=== PATIENT | female | born 1960 | race Two or more races ===

== ENCOUNTER 2024-04-25 17:33 | Emergency (ER) | payer MEDICARE, OTHER ==
[~2024-04-25] VITALS: Ht 172.7 cm; Wt 79.2 kg
--- NOTE | 2024-04-25 20:27 | ED.PDOC ---
Eye-HPI HPI Comments 63 y.o female with PMHx of gurdeep, presents with left lower tooth pain that began approximately one year ago following a root canal and crown placement. Since the procedure, the patient has had persistent discomfort and has seen her dentist multiple times for evaluation. Most recently, the patient was seen by their dentist two days ago, where X rays were taken, and she was prescribed Clindamycin which she has started taking. Despite this, the patient continues to experience redness of the gums, swelling and ongoing pain. The patient denies any fever, chills, drainage, or any other pertinent negatives. Patient did have a deep teeth cleaning about 2 weeks ago. Chief Complaint: Tooth Pain Time Seen by MD: 20:02 Primary Care Provider: brandee Robles Notes: Nurses Notes, Medications, Allergies Allergies: Coded Allergies: Tetracycline (Verified Allergy, Unknown, 04/25/24) Home Meds Active Scripts Fluconazole (Diflucan) 150 Mg Tab, 1 TAB PO EOD for 3 Days, #3 TAB Prov:GUS HAINES MD 04/25/24 Information Source: Patient Mode of Arrival: Ambulatory Timing: Came on: Gradually Duration: Since onset Quality: Pain Mouth: Left, Lower, Tender, Swelling, Red Associated signs and symptoms: Tooth Pain Past Medical History PAST MEDICAL HISTORY: Thyroid (gurdeep ) Past Medical History (Other): sclerosis and bulging disks CHIP MIXER History: No Pertinent CHIP MIXER History Family History Family History: Reviewed,noncontributory to illness Social History Smoker: Non-Smoker Alcohol: Denies ETOH Use Drugs: Denies Drug Use Lives In: Home Constitutional: denies: chills, diaphoresis, fatigue, fever, malaise, sweats, weakness, others EENTM: reports: others (left bottom tooth pain ); denies: blurred vision, double vision, ear bleeding, ear discharge, ear drainage, ear pain, ear ringing, eye pain, eye redness, hearing loss, mouth pain, mouth swelling, nasal discharge, nose bleeding, nose congestion, nose pain, photophobia, tearing, thr oat pain, throat swelling, voice changes Respiratory: denies: cough, hemoptysis, orthopnea, SOB at rest, shortness of breath, SOB with excertion, stridor, wheezing, others Cardiovascular: denies: chest pain, dizzy spells, diaphoresis, Dyspnea on exertion, edema, irregular heart beat, left arm pain, lightheadedness, palpitations, PND, syncope, others Gastrointestinal: denies: abdomen distended, abdominal pain, blood streaked bowels, constipated, diarrhea, dysphagia, difficulty swallowing, hematemesis, melena, nausea, poor appetite, poor fluid intake, rectal bleeding, rectal pain, vomiting, others Genitourinary: denies: abnormal vagina bleeding, burning, dyspareunia, dysuria, flank pain, frequency, hematuria, incontinence, pain, , vagina discharge, urgency, others Neurological: denies: dizziness, fainting, headache, left sided numbness, left sided weakness, numbness, paresthesia, pre-existing deficit, right sided numbness, right sided weakness, seizure, speech problems, tingling, tremors, weakness, others Musculoskeletal: denies: back pain, gout, joint pain, joint swelling, muscle pain, muscle stiffness, neck pain, others Integumetry: denies: bruises, change in color, change in hair/nails, dryness, laceration, lesions, lumps, rash, wounds, others Allergic/Immunocompromised: denies: Difficulty Healing, Frequent Infections, Hives, Itching, others Endocrine: denies: excessive hunger, excessive sweating, excessive thirst, excessive urination, flushing, intolerance to cold, intolerance to heat, unexplained weight gain, unexplained weight loss, others Psychiatric: denies: anxiety, bipolar disorder, depression, hopeless, panic disorder, schizophrenia, sleepless, suicidal, others All Other Systems: Reviewed and Negative Physical Exam General Appearance: No Apparent Distress, Normal HEENT: Normal ENT Inspection, Pharynx Normal, TMs Normal, Other (Gingival erythema with a small abrasion to the left lower gum area, no periapical abscess, no loose teeth, no obvious significant dental caries) Neck: Full Range of Motion, Non-Tender, Normal, Normal Inspection Respiratory: Chest Non-Tender, Lungs Clear, No Accessory Muscle Use, No Respiratory Distress, Normal Breath Sounds Cardiovascular: No Edema, No JVD, No Murmur, No Gallop, Normal Peripheral Pulses, Regular Rate/Rhythm Breast Exam: Deferred Gastrointestinal: No Organomegaly, Non Tender, No Pulsatile Mass, Normal Bowel Sounds, Soft Genitalia: Deferred Pelvic: Deferred Rectal: Deferred Extremities: No calf tenderness, Normal capillary refill, Normal inspection, Normal range of motion, No pedal edema, Other (Right knee with mild diffuse tenderness to palpation, no focal TTP, full range of motion of the knee, ambula ting with a mild limp, compartments soft, no open wounds, no erythema, no ecchymosis, no laceration or abrasion, 2+ DP pulse, full range of motion of the a goal and toes distally in the hip proximally, ambulating with a steady gait with a mild limp while in the ER.) Musculoskeletal : Apperance: Normal Neurologic: Alert, contact center representative II-XII nml as Tested, No Motor Deficits, Normal Affect, Normal Mood, No Sensory Deficits Cerebellar Function: Normal Reflexes: Normal Skin: Dry, Normal Color, Warm Lymphatic: No Adenopathy Was a procedure done? Was a procedure done?: No EENT DIFF Eye: N/A Sore Throat: Peritonsillar Abscess, Peritonsillar Cellulitis, Viral Pharyngitis, Other (Gingivitis) X-Ray, Labs, Meds, VS Vital Signs Date Time Temp Pulse Resp B/P (MAP) Pulse Ox O2 Delivery O2 Flow Rate FiO2 04/25/24 21:42 98.0 96 19 140/86 (104) 96 98.0 04/25/24 21:41 85 18 96 Room Air* 0 21 04/25/24 17:50 97.4 107 19 119/76 (90) 94 X-Ray, Labs, Meds, VS Comment 63-year-old female with complaints of toothache as above. Vital signs stable, afebrile. Physical exam with evidence of gingivitis but no evidence of periapical abscess. Patient already has a prescription for clindamycin prescribed to her by her dentist who she saw for these complaints earlier but has only been taking them for about one day today. Patient also requested a prescription for three doses of Diflucan because she states every time she gets antibiotics she gets a yeast infection but her dentist did not feel comfortable prescribing this to her. I instructed the patient to do hydrogen peroxide rinses and to take the clindamycin and to follow up with her primary care provider and dentist within 2-3 days for re-evaluation. I provided strict return precautions and the patient was discharged home with her partner in stable condition. Time of 1ST Reevaluation: 20:19 Reevaluation 1ST: Unchanged Patient Education/Counseling: Diagnosis, Treatment, Prognosis Family Education/Counseling: Diagnosis, Treatment, Prognosis Departure 1 Departure Time of Disposition: 23:38 Impression: Primary Impression: Tooth ache Additional Impression: Gingivitis Disposition: HOME / SELF CARE / HOMELESS Condition: Stable e-Prescriptions Fluconazole (Diflucan) 150 Mg Tab 1 TAB PO EOD for 3 Days, #3 TAB Prov: GUS HAINES MD 04/25/24 Critical Care Note Critical Care Time?: No Stability Stability form required: No I personally scribed for GUS HAINES MD ([email or web address]) on 04/25/24 at 20:27. Electronically submitted by Karen Case ([facility]). GUS HAINES MD Apr 25, 2024 20:27
[2024-04-25] MEDS ORDERED: FLUC150T38 PO (20:48)
[2024-04-25 21:41] VITALS: PULSE 85; RESP 18; O2SAT 96
[2024-04-25 21:42] VITALS: BP 140/86; PULSE 96; RESP 19; TEMP 98; O2SAT 96
== END 2024-04-25 21:38 | disposition home or self-care (01) ==
LOC: ER 17:33
DX: K05.10 Chronic gingivitis, plaque induced (principal); K08.89 Other specified disorders of teeth and supporting structures; E07.9 Disorder of thyroid, unspecified; Z88.1 Allergy status to other antibiotic agents